=== PATIENT | male | born 1975 | race African-American/Black ===

== ENCOUNTER 2017-08-06 14:04 | Emergency (ER) | payer OTHER ==
[~2017-08-06] VITALS: Ht 175.3 cm; Wt 61.2 kg
--- NOTE | ~2017-08-06 | EKG ---
PATIENT: WAYLON BOYD UNIT #: [id number] Ventricular Rate: 88 BPM Atrial Rate: 88 BPM P-R Interval: 130 ms QRS Duration: 74 ms Q-T Interval: 354 ms QTC Calculation(Bezet): 428 ms P [place]: 75 degrees Calculated R [place]: -5 degrees Calculated T [place]: 36 degrees Diagnosis Line: Normal sinus rhythm Diagnosis Line: Possible Left atrial enlargement Diagnosis Line: Nonspecific ST abnormality Diagnosis Line: Abnormal ECG Diagnosis Line: No previous ECGs available Diagnosis Line: Confirmed by MARTÍN MELO MD ([id number]) on Diagnosis Line: 08/07/2017 2:08:40 PM INTERPRETING MD: KAMERON GUZMAN
[2017-08-06 16:08] LABS: BASOPHIL% 0.4 % (0-2.5); EOSINOPHIL% 0.3 % (0.0-7.0); HEMOGLOBIN 16.7 gm/dL (13.0-16.0); LYMPHOCYTE# 1.4 X10e3 (1.0-3.5); LYMPHOCYTE% 18.2 % (17.0-45.0); MEAN CELL VOLUME 95.8 FL (83-96); MEAN CORPUSCULAR HEMOGLOBIN 31.4 PG (28-34); MEAN CORPUSCULAR HGB CONC 32.7 g/dL (30-36); MEAN PLATELET VOLUME 9.3 FL (6.5-11.5); MONOCYTE# 0.6 X10e3 (0-1.0); MONOCYTE% 7.1 % (3.0-12.0); NEUTROPHIL# 5.8 X10e3 (1.5-7.1); PLATELET COUNT 218 X10e3 (140-420); RED BLOOD COUNT 5.33 X10e (3.90-5.60); RED CELL DISTRIBUTION WIDTH 14.6 % (11.0-15.5); WHITE BLOOD COUNT 7.8 X10e3 (4.0-10.5)
[2017-08-06 16:10] LABS: DIFF IND NO
[2017-08-06 16:19] LABS: POC - CKMB 5.7 ng/mL (0.0-7.9); POC - TROPONIN <0.05 ng/mL (<=0.05)
[2017-08-06 16:41] LABS: BUN/CREATININE RATIO 9.33; CALCIUM SERUM 9.8 mg/dL (8.4-10.2); CREATININE SERUM 1.5 mg/dL (0.6-1.4); GLOM FILT RATE Estimated 64.7 mL/min (>60); POTASSIUM 3.8 mmol/L (3.5-5.1)
[2017-08-06 17:10] LABS: URINE SOURCE CLEAN CATCH
[2017-08-06 17:17] LABS: URINE APPEARANCE CLEAR; URINE BILIRUBIN NEG (NEG); URINE BLOOD NEG (NEG); URINE COLOR YELLOW; URINE GLUCOSE NEG (NEG); URINE KETONE TRACE (NEG); URINE LEUKOCYTE ESTERASE NEG (NEG); URINE NITRATE NEG (NEG); URINE PROTEIN 1+ (NEG); URINE SPECIFIC GRAVITY 1.014 (1.003-1.035)
[2017-08-06 17:20] LABS: URBCS1 AUWI 0-2 /[HPF] (0-2); URINE BACTERIA AUWI NEG (NEGATIVE); URINE SQUAMOUS EPITHELIAL CELL OCC /[HPF]; UWBCS1 AUWI 0-2 (0-5)
[2017-08-06 17:24] LABS: U HYALINE CASTS AUWI 0-2 /[LPF]
[2017-08-06 17:25] LABS: CULTURE INDICATED? NO
[2017-08-06 17:29] LABS: AMPHETAMINE POS (NEG); BARBITURATES NEG (NEG); BENZODIAZEPINES NEG (NEG); COCAINE NEG (NEG); MARIJUANA POS (NEG); OPIATES NEG (NEG); TRICYCLIC ANTIDEPRESSANTS NEG (NEG); U METHADONE NEG (NEG)
== END 2017-08-06 17:36 | disposition home or self-care (01) ==
LOC: EDBD 14:04 → CED 14:04
PROVIDERS: Emergency Medicine
DX: E86.1 Hypovolemia (principal); R55 Syncope and collapse; F10.129 Alcohol abuse with intoxication, unspecified; F19.10 Other psychoactive substance abuse, uncomplicated; F17.210 Nicotine dependence, cigarettes, uncomplicated
CPT/HCPCS: 36415; 80048; 80307; 81003; 82553; 82947; 84484; 85025; 93005; 96360; 99284; G0480